=== PATIENT | female | born 1985 | race Caucasian/White ===

== ENCOUNTER 2018-10-16 15:17 | Emergency (ER) | payer SELFPAY ==
[2018-10-16] MEDS ORDERED: HYDROmorphone 1 MG/ML CARPUJECT IVP STA (16:03)
[2018-10-16] MEDS ORDERED: ONDANSETRON 4 MG/2 ML VIAL IVP STA (16:04)
[2018-10-16] MEDS ORDERED: LORazepam 2 MG/ML VIAL IVP STA (16:04)
--- NOTE | 2018-10-16 16:07 | ED Physician Documentation ---
PD HPI UPPER EXT INJURY - Stated complaint Stated Complaint: L SHOULDER INJ - Chief complaint Chief Complaint: Ext Problem - History obtained from History obtained from: Patient, Family - History of Present Illness Location: Left, Shoulder Type of injury: Fall Where injury occurred: Home Timing - onset: How many hours ago (1) Timing - duration: Hours (1) Timing - details: Abrupt onset Pain level max: 9 Pain level now: 9 Improved by: Rest, Immobilization Worsened by: Moving, Palpating Associated symptoms: No: Weakness, Numbness, Tingling, Swelling Contributing factors: No: Anticoagulated Similar symptoms before: Diagnosis (shoulder dislocation) Recently seen: Not recently seen - Additonal information Additional information: pt is right handed. has had 3 dislocations in the same shoulder in the past. Review of Systems Ten Systems: 10 systems reviewed and negative Constitutional: denies: Fever, Chills GI: denies: Nausea, Vomiting, Diarrhea : denies: Now EGA Skin: denies: Rash Musculoskeletal: denies: Neck pain, Back pain Neurologic: denies: Focal weakness, Numbness, Head injury, LOC PD PAST MEDICAL HISTORY - Past Medical History Past Medical History: No Musculoskeletal: Other (recurrent shoulder dislocation) - Past Surgical History Past Surgical History: Yes - Present Medications Home Medications: Ambulatory Orders Medication Instructions Recorded Confirmed No Known Home Medications 10/16/18 10/16/18 - Allergies Allergies/Adverse Reactions: Allergies Allergy/AdvReac Type Severity Reaction Status Date / Time morphine Allergy Nausea Verified 10/16/18 15:24 - Living Situation Living Situation: reports: With family Living Arrangement: reports: At home - Social History Does the pt smoke?: No Smoking Status: Never smoker Does the pt drink ETOH?: Yes Does the pt have substance abuse?: Yes PD ED PE NORMAL - Vitals Vital signs reviewed: Yes - General General: Alert and oriented X 3, No acute distress - HEENT HEENT: Atraumatic, PERRL, Moist mucous membranes - Neck Neck: Supple, no meningeal sign, No bony TTP - Cardiac Cardiac: RRR - Respiratory Respiratory: No respiratory distress, Clear bilaterally - Back Back: No spinal TTP - Derm Derm: Warm and dry - Extremities Extremities: Other (L shoulder - deformity present. NVI.) - Neuro Neuro: Alert and oriented X 3 Results - Vitals Vitals: Vital Signs - 24 hr 10/16/18 10/16/1819 15:22 16:45 16:49 Temperature 37.2 C Heart Rate 138 H 100 109 H Respiratory 22 18 20 Rate Blood Pressure 134/93 H 131/97 H O2 Saturation 98 100 10/16/18 10/16/18 10/16/18 16:50 16:55 16:57 Temperature Heart Rate 93 94 89 Respiratory 22 20 20 Rate Blood Pressure 120/84 H 115/79 O2 Saturation 99 115 H 100 10/16/18 17:08 Temperature Heart Rate 108 H Respiratory 17 Rate Blood Pressure 116/82 H O2 Saturation 100 Oxygen O2 Source Nasal cannula - Rads (name of study) L shoulder xray Radiology: Prelim report reviewed, EMP read contemporaneously, See rad report (Left glenohumeral joint anterior dislocation. No acute fracture is seen) Left shoulder x-ray postreduction Radiology: Prelim report reviewed, EMP read contemporaneously, See rad report (Anatomic alignment of the left glenohumeral joint. No definite acute fracture visualized) Procedures - Reduction Body part reduced: Left, Shoulder Fracture or dislocation: Dislocation Shoulder reduction technique: [place] / ext rotation Reduction aftercare: NV intact, Xray confirms reduction, Alignment improved, Sling, Patient tolerated well - Procedural sedation Sedation prep: Informed consent, Time out completed, Last meal (5hrs CAN PILER), PE performed, AHA 1 - healthy, IV O2 monitor, ET CO2 monitor, RT present Sedation medications: propofol (50mg), given by MD Patient status during sedation: Responds to tactile, Vitals remained stable, Maintained airway, Recovered uneventfully Time in sedation (Minutes): 20 PD MEDICAL DECISION MAKING - ED course Complexity details: reviewed results, re-evaluated patient, considered differential, d/w patient ED course: 33-year-old female presents to the emergency department with a left shoulder dislocation. This was reduced. Tolerated well. Declines pain medication for home. We will have her follow-up with orthopedics for further care. This is her fourth dislocation of the shoulder. Patient counseled regarding signs and symptoms for which I believe and urgent re-evaluation would be necessary. Patient with good understanding of and agreement to plan and is comfortable going home at this time This document was made in part using voice recognition software. While efforts are made to proofread this document, sound alike and grammatical errors may occur. Departure - Departure Disposition: 01 Home, Self Care Clinical Impression: Shoulder dislocation Qualifiers: Encounter type: initial encounter Laterality: left Qualified Code(s): S43.005A - Unspecified dislocation of left shoulder joint, initial encounter Condition: Good Instructions: ED Dislocation Shoulder Redu Follow-Up: Rickey Parr MD [Provider Admit Priv/Credential] - Within 1 week Comments: Return if you worsen. Stay in the sling until released by orthopedics. In 3-4 days you can start to gently move your shoulder, but only in small circles. Discharge Date/Time: 10/16/18 17:44
--- NOTE | 2018-10-16 16:26 | XRAY Report ---
Reason: fall, L shoulder pain Procedure Date: 10/16/2018 Accession Number: [id number] / [id number] Procedure: XR - Shoulder 3 View LT CPT Code: FULL RESULT: EXAM: LEFT SHOULDER RADIOGRAPHY EXAM DATE: 10/16/2018 04:03 PM. CLINICAL HISTORY: Fall, left shoulder pain. COMPARISON: SHOULDER 2 VIEW LT 05/20/2014 9:38 PM. TECHNIQUE: 3 views. FINDINGS: Left glenohumeral joint anterior dislocation. No acute fracture is seen. The acromioclavicular joint appears unremarkable. IMPRESSION: Left glenohumeral joint anterior dislocation. No acute fracture is seen. [facility]
[2018-10-16] MEDS ORDERED: PROPOFOL 200 MG/20 ML VIAL IVP ONE (16:48)
[2018-10-16] MEDS ORDERED: PROPOFOL 200 MG/20 ML VIAL IVP STA (16:52)
[2018-10-16 17:09] VITALS: BP 116/82
--- NOTE | 2018-10-16 17:31 | XRAY Report ---
Reason: post reduction Procedure Date: 10/16/2018 Accession Number: [id number] / [id number] Procedure: XR - Shoulder 2 View LT CPT Code: FULL RESULT: EXAM: LEFT SHOULDER RADIOGRAPHY EXAM DATE: 10/16/2018 04:56 PM. CLINICAL HISTORY: Post reduction. COMPARISON: SHOULDER 3 VIEW LT 10/16/2018 3:40 PM. TECHNIQUE: 2 views. FINDINGS: The left glenohumeral joint is now anatomically aligned. No definite acute fracture visualized. IMPRESSION: Anatomic alignment of the left glenohumeral joint. No definite acute fracture visualized. [facility]IA
== END 2018-10-16 17:44 | disposition home or self-care (01) ==
LOC: ED 15:17
DX: S43.005A Unspecified dislocation of left shoulder joint, initial encounter (principal); W11.XXXA Fall on and from ladder, initial encounter; Y92.009 Unspecified place in unspecified non-institutional (private) residence as the place of occurrence of the external cause
CPT/HCPCS: 23650; 73030; 94770; 96374; 99152; 99283; J1170; J2060